=== PATIENT | female | born 1990 | race Hispanic/Latino ===

== ENCOUNTER → 2024-11-01 | Outpatient (CLI) | payer OTHER ==
--- NOTE | 2024-11-01 15:03 | HMCIMG ---
If symptoms persist, MRI can be considered if not clinically contraindicated. MR ANKLE RIGHT WO HISTORY: Status post fall COMPARISON: None TECHNIQUE: MRI of the right ankle was performed utilizing multiple pulse sequences in axial, coronal and sagittal planes. Patient was not given contrast through intravenous route. FINDINGS: Abnormal increased signal intensity is seen involving the talus consistent bone bruise (microtrabecular fracture). There is stress fracture. Small joint effusion is seen predominantly in the subtalar joint and tibiotalar joint. There is a calcaneal spur. No other fracture or dislocation is seen. Small amount of fluid is seen in the posterior tibialis tendon sheath suggestive of tenosynovitis. Soft tissue swelling is seen. No rupture or Achilles tendon is seen. Posterior tibialis, flexor hallucis longus and flexor digitorum longus tendons are intact. The peroneus longus and brevis tendons are intact. Anterior talofibular ligament and calcaneofibular ligaments are intact. IMPRESSION: 1. Abnormal increased signal intensity is seen involving the talus consistent bone bruise (microtrabecular fracture). There is stress fracture. Small joint effusion is seen predominantly in the subtalar joint and tibiotalar joint. There is a calcaneal spur. No other fracture or dislocation is seen. Small amount of fluid is seen in the posterior tibialis tendon sheath suggestive of tenosynovitis. Soft tissue swelling is seen.
== END | disposition home or self-care (01) ==
LOC: RAH 13:50
PROVIDERS: ATTEND Physician Assistant
DX: S93.491D Sprain of other ligament of right ankle, subsequent encounter (principal); S83.8X2D Sprain of other specified parts of left knee, subsequent encounter; S80.02XD Contusion of left knee, subsequent encounter; S80.212D Abrasion, left knee, subsequent encounter; M84.371D Stress fracture, right ankle, subsequent encounter for fracture with routine healing; M65.871 Other synovitis and tenosynovitis, right ankle and foot; M77.31 Calcaneal spur, right foot; M25.471 Effusion, right ankle; M25.571 Pain in right ankle and joints of right foot; M25.562 Pain in left knee; X58.XXXD Exposure to other specified factors, subsequent encounter
CPT/HCPCS: 73721